=== PATIENT | female | born 1940 | race Caucasian/White ===

== ENCOUNTER 2021-09-10 23:59 | Inpatient (IN) | payer OTHER, BC ==
[2021-09-11] MEDS ORDERED: oxyCODONE HCL 5 MG TABLET PO ONE (00:31)
[2021-09-11] MEDS ORDERED: oxyCODONE HCL 5 MG TABLET ONE (00:57)
[2021-09-11 02:45] LABS: BASO % 0.2 % (0-2.0); EOS % 1.5 % (0-4.5); HEMATOCRIT 38.8 % (32.4-45.2); HEMOGLOBIN 13.3 GM/dL (10.7-15.3); LYMPH % 8.9 % (8-40); MCH 32.2 pg (25.7-33.7); MCHC 34.4 g/dl (32.0-36.0); MEAN CELL VOLUME 93.7 fl (80-96); MEAN PLT VOLUME 7.8 fl (7.5-11.1); MONO % 6.6 % (3.8-10.2); NEUT % 82.8 % (42.8-82.8); PLATELET COUNT 227 10^3/uL (134-434); RBC 4.14 M/mm3 (3.60-5.2); RDW 14.3 % (11.6-15.6); WHITE BLOOD COUNT 9.1 K/mm3 (4.0-10.0)
[2021-09-11 03:05] LABS: ALBUMIN 4.3 g/dl (3.4-5.0); BLOOD UREA NITROGEN 10.2 mg/dL (7-18)
[2021-09-11 03:08] LABS: CREATININE 0.8 mg/dL (0.55-1.3)
[2021-09-11 03:10] LABS: BILIRUBIN,TOTAL 0.6 mg/dL (0.2-1); TOT PROT 7.2 g/dl (6.4-8.2)
[2021-09-11] MEDS ORDERED: ACETAMINOPHEN 1000 MG/100 ML BAG IVPB PRN (08:46)
[2021-09-11] MEDS ORDERED: PT OWN MED DRAWER 7, Y5N ONE (09:57)
[2021-09-11] MEDS ORDERED: CARVEDILOL 12.5 MG TABLET (FP) ONE ×2 (09:57→21:48)
[2021-09-11] MEDS ORDERED: LOSARTAN POTASSIUM 50 MG TABLET ONE (09:57)
[2021-09-11] MEDS ORDERED: CARVEDILOL 12.5 MG TABLET (FP) PO SCH (10:00)
[2021-09-11] MEDS: LOSARTAN POTASSIUM 25 MG TABLET PO SCH ×2 (10:10→10:15)
[2021-09-11] MEDS ORDERED: traMADol HCL 50 MG TABLET ONE (11:51)
[2021-09-11] MEDS: traMADol HCL 50 MG TABLET PO PRN (12:15)
[2021-09-11] MEDS ORDERED: LABETALOL HCL 100 MG TABLET (FP) PO ONE (18:26)
[2021-09-11] MEDS ORDERED: ACETAMINOPHEN INJECTION 100 ML IVPB ONE (20:13)
[2021-09-11] MEDS ORDERED: MELATONIN 5 MG TABLETS ONE (21:48)
[2021-09-11] MEDS ORDERED: MELATONIN 5 MG TABLETS PO SCH (22:00)
[2021-09-11] MEDS: CARVEDILOL 25 MG TABLET (FP) PO SCH (22:16)
[2021-09-12 04:07] VITALS: BMI 24.9
[2021-09-12] MEDS: traMADol HCL 50 MG TABLET PO PRN (06:44)
[2021-09-12 08:59] LABS: BASO % 0.4 % (0-2.0); HEMATOCRIT 36.2 % (32.4-45.2); LYMPH % 13.4 % (8-40); MCH 31.4 pg (25.7-33.7); MCHC 33.2 g/dl (32.0-36.0); MEAN CELL VOLUME 94.4 fl (80-96); MEAN PLT VOLUME 8.2 fl (7.5-11.1); NEUT % 66.2 % (42.8-82.8); PLATELET COUNT 193 10^3/uL (134-434); RBC 3.83 M/mm3 (3.60-5.2); RDW 14.2 % (11.6-15.6); WHITE BLOOD COUNT 7.5 K/mm3 (4.0-10.0)
[2021-09-12 09:25] LABS: INR 1.25 (0.83-1.09); PROTHROMBIN TIME (PATIENT) 14.4 SEC (9.7-13.0)
[2021-09-12 09:27] LABS: ACTIVATED PTT 29.5 SECONDS (25.2-36.5)
[2021-09-12 09:35] LABS: CALCIUM 8.9 mg/dL (8.5-10.1)
[2021-09-12 09:36] LABS: BLOOD UREA NITROGEN 7.8 mg/dL (7-18); MAGNESIUM 2.1 mg/dL (1.8-2.4)
[2021-09-12 09:38] LABS: CREATININE 0.6 mg/dL (0.55-1.3); PHOSPHOROUS 2.6 mg/dL (2.5-4.9)
[2021-09-12 09:40] LABS: BILIRUBIN,TOTAL 0.6 mg/dL (0.2-1); TOT PROT 5.9 g/dl (6.4-8.2)
[2021-09-12 09:42] LABS: ALBUMIN 3.3 g/dl (3.4-5.0)
[2021-09-12] MEDS: CARVEDILOL 25 MG TABLET (FP) PO SCH (09:51)
[2021-09-12] MEDS: LOSARTAN POTASSIUM 25 MG TABLET PO SCH (09:51)
[2021-09-12 11:06] VITALS: BP 138/70; PULSE 83; TEMP 99
== END 2021-09-12 15:31 | disposition home or self-care (01) | DRG 554 ==
LOC: JER 23:59 → JERBED 09-11 01:35 → J8W 09-12 03:53
PROVIDERS: ADMIT Internal Medicine; ATTEND Internal Medicine
DX: M25.061 Hemarthrosis, right knee (principal); I10 Essential (primary) hypertension; E78.5 Hyperlipidemia, unspecified; M25.561 Pain in right knee; M06.9 Rheumatoid arthritis, unspecified; S80.01XA Contusion of right knee, initial encounter; W18.30XA Fall on same level, unspecified, initial encounter; Y92.008 Other place in unspecified non-institutional (private) residence as the place of occurrence of the external cause
CPT/HCPCS: 36415; 73560-TC-RT-FY; 73700-TC-RT; 73718-TC-RT; 80053; 83735; 84100; 85025; 85610; 85730; 93005; 93010; 99285-25; C9803-CS; U0003; U0005